=== PATIENT | female | born 1990 | race Caucasian/White ===

== ENCOUNTER 2017-03-21 08:08 | Emergency (ER) | payer OTHER ==
[~2017-03-21] VITALS: Ht 152.4 cm; Wt 56.7 kg
[~2017-03-21 08:08] MED LIST: ACET325 PO; ALBU90OI INH; ALPR.25 PO; ALPR.5 PO; AMOCLA875 PO; ANTOXYBENA RIGHTEAR; AZIT250 PO; Ambien5 MG PO; Amitriptyline100 MG PO; BENTYL20 MG PO; BENZ100A PO; Bactrim Ds Tab1 EACH PO; CEPH500 PO; CITA20 PO; FLUO10 PO; FLUO20 PO; Flagyl500 MG PO; GUAI600T33 PO; HYDACE5 PO; HYDACE5325 PO; HYDPAM50 PO; HYDR1TAB94 PO; IBUP200 PO; Keflex500 MG PO; MARINA IUD; METPRE4DP PO; MUPI2TO TOP; NAPR500 PO; NAPR550 PO; Norco 5-325 Ta1 EACH PO; OMEP20ER PO; ONDA4 PO; PRED20 PO; PRENZ; PRODEXEL PO; PROM25 PO; PSEU120ER PO; Pepcid40 MG PO; Percocet 5-3251 EACH PO; RXCLIN PO; RXHYD5325 PO; SULTRIDS PO; TRAM50 PO; Ultram50 MG PO; VICODIN 5-3001 EACH PO; VYBRID PO; Vibramycin100 MG PO; Xanax0.5 MG PO; YAZ; Zithromax250 MG PO; Zofran Odt4 MG SL; Zofran4 MG PO; Zoloft50 MG PO; [UNRECOGNIZED DRUG - OTHER]
[2017-03-21] MEDS ORDERED: IBUPROFEN200 MG PO (08:44)
[2017-03-21 08:56] LABS: Source, Urine Clean Catch
[2017-03-21 09:11] LABS: Blood, Urine 3+ (Neg); Glucose Qualitative, Urine Neg (Neg); Ketones, Urine Neg (Neg); Leukocyte Esterase, Urine 3+ (Neg); Nitrite, Urine Pos (Neg); Protein, Urine 3+ (Neg); Urobilinogen, Urine 1+ (Normal)
[2017-03-21 09:20] LABS: Bilirubin, Urine 1+ (Neg)
[2017-03-21 09:21] LABS: Appearance, Urine Cloudy (Clear); Color, Urine Amber (P-Yellow)
[2017-03-21 09:22] LABS: White Blood Cells, Urine TNTC /hpf (0-5)
[2017-03-21 09:23] LABS: Bacteria Many /hpf; Squamous Epithelial Cells Many /hpf (Few)
[2017-03-21 09:49] LABS: BASOPHILS ABSOLUTE AUTO 0.02 K/mm3 (0.00-0.23); BASOPHILS PERCENT AUTO 0 % (0-2); EOSINOPHILS PERCENT AUTO 0 % (0-6); Hematocrit 42.3 % (33.0-51.0); Hemoglobin 14.1 g/dL (11.5-16.0); IMMATURE GRAN ABSOLUTE AUTO 0.13 K/mm3 (0.00-0.10); IMMATURE GRAN PERCENT AUTO 1 % (0-1); LYMPHOCYTES ABSOLUTE AUTO 1.71 K/mm3 (0.84-5.20); LYMPHOCYTES PERCENT AUTO 7 % (21-46); MONOCYTES ABSOLUTE AUTO 1.19 K/mm3 (0.16-1.47); MONOCYTES PERCENT AUTO 5 % (4-13); Mean Corpuscular HGB 29.5 pg (26.0-34.0); Mean Corpuscular HGB Conc 33.3 g/dL (31.5-36.5); Mean Corpuscular Volume 89 fL (80-100); Mean Platelet Volume 9.9 fL (9.1-12.4); NEUTROPHILS ABSOLUTE AUTO 22.95 K/mm3 (1.96-9.15); NEUTROPHILS PERCENT AUTO 88 % (41-73); Platelet Count 224 K/mm3 (150-400); RDW Coefficient Variation 13.3 % (11.7-14.2); RDW Standard Deviation 43.7 fL (35.1-46.3); Red Blood Cell Count 4.78 M/mm3 (3.80-5.20)
[2017-03-21 10:03] LABS: Specimen Source VAG
[2017-03-21 10:15] LABS: Alanine Aminotransfer (ALT/SGP 17 U/L (12-78); Albumin, Blood 3.3 g/dL (3.4-5.0); Albumin/Globulin Ratio 0.9 (0.8-1.8); Alk Phos 66 U/L (50-136); Anion Gap 10 mmol/L (6-16); Aspartate Aminotrans (AST/SGOT 9 U/L (12-37); Bilirubin, Total 0.6 mg/dL (0.1-1.0); Blood Urea Nitrogen 14 mg/dL (8-24); Bun/Creatinine Ratio 21.1 (12.0-20.0); CO2, Blood 21 mmol/L (21-32); Calcium, Blood 8.5 mg/dL (8.5-10.1); Chloride, Blood 103 mmol/L (98-108); Creatinine, Blood 0.67 mg/dL (0.40-1.00); Globulin, Blood 3.7 g/dL (2.2-4.0); Glomerular Filtration Rate >60 (60-); Glucose, Blood 110 mg/dL (70-99); Potassium, Blood 3.9 mmol/L (3.5-5.5); Sodium, Blood 134 mmol/L (136-145)
[2017-03-21] MEDS ORDERED: MONDOXYNE NL100 MG PO (10:26)
[2017-03-21] MEDS ORDERED: Zofran Odt4 MG SL (10:26)
[2017-03-21] MEDS ORDERED: Flagyl500 MG PO (10:26)
[2017-03-21 10:40] LABS: Candida species (DNA Probe) Negative (NEGATIVE); G. vaginalis (DNA Probe) Positive (NEGATIVE); T. vaginalis (DNA Probe) Negative (NEGATIVE)
[2017-03-22 03:49] LABS: Source Vaginal/Cervical
[2018-01-04] MEDS ORDERED: KETO10 PO (13:59)
[2018-01-04] MEDS ORDERED: Bactrim Ds Tab1 EACH PO (13:59)
[2018-01-04] MEDS ORDERED: CEPH500 PO (13:59)
== END 2017-03-21 12:37 | disposition home or self-care (01) ==
LOC: ER 08:08
PROVIDERS: Physician Assistant
DX: N73.9 Female pelvic inflammatory disease, unspecified (principal); J45.909 Unspecified asthma, uncomplicated; F17.200 Nicotine dependence, unspecified, uncomplicated; Z88.1 Allergy status to other antibiotic agents; Z88.5 Allergy status to narcotic agent; Z90.49 Acquired absence of other specified parts of digestive tract
CPT/HCPCS: 36415; 74177; 80053; 81001; 81025; 85025; 87070; 87086; 87205; 87480; 87491; 87510; 87591; 87660; 96374; 96375; 99284; J0696; J1170; J2405; J3010; Q9967

== ENCOUNTER 2018-01-09 17:35 | Emergency (ER) | payer MEDICAID ==
[~2018-01-09] VITALS: Ht 152.4 cm; Wt 59.0 kg
[~2018-01-09 17:35] MED LIST changes: +IBUPROFEN200 MG PO; +KETO10 PO; +MONDOXYNE NL100 MG PO
[2018-01-09 19:12] LABS: BASOPHILS ABSOLUTE AUTO 0.03 K/mm3 (0.00-0.23); BASOPHILS PERCENT AUTO 0 % (0-2); EOSINOPHILS ABSOLUTE AUTO 0.23 K/mm3 (0.00-0.68); EOSINOPHILS PERCENT AUTO 2 % (0-6); Hematocrit 45.8 % (33.0-51.0); IMMATURE GRAN ABSOLUTE AUTO 0.03 K/mm3 (0.00-0.10); IMMATURE GRAN PERCENT AUTO 0 % (0-1); LYMPHOCYTES ABSOLUTE AUTO 3.99 K/mm3 (0.84-5.20); LYMPHOCYTES PERCENT AUTO 40 % (21-46); MONOCYTES ABSOLUTE AUTO 0.68 K/mm3 (0.16-1.47); MONOCYTES PERCENT AUTO 7 % (4-13); Mean Corpuscular HGB 28.9 pg (26.0-34.0); Mean Corpuscular HGB Conc 32.8 g/dL (31.5-36.5); Mean Corpuscular Volume 88 fL (80-100); Mean Platelet Volume 9.3 fL (9.1-12.4); NEUTROPHILS ABSOLUTE AUTO 5.03 K/mm3 (1.96-9.15); NEUTROPHILS PERCENT AUTO 50 % (41-73); Platelet Count 384 K/mm3 (150-400); RDW Coefficient Variation 12.7 % (11.7-14.2); RDW Standard Deviation 41.7 fL (35.1-46.3); Red Blood Cell Count 5.19 M/mm3 (3.80-5.20); White Blood Cell Count 9.99 K/mm3 (4.00-11.30)
[2018-01-09 19:23] LABS: Source, Urine Clean Catch
[2018-01-09 19:26] LABS: Appearance, Urine Clear (Clear); Bilirubin, Urine Neg (Neg); Blood, Urine Neg (Neg); Color, Urine Yellow (P-Yellow); Glucose Qualitative, Urine Neg (Neg); Ketones, Urine Neg (Neg); Leukocyte Esterase, Urine Neg (Neg); Nitrite, Urine Neg (Neg); Protein, Urine Neg (Neg); Urobilinogen, Urine NORM (Normal)
[2018-01-09 19:37] LABS: Alanine Aminotransfer (ALT/SGP 25 U/L (12-78); Albumin, Blood 3.7 g/dL (3.4-5.0); Albumin/Globulin Ratio 0.9 (0.8-1.8); Alk Phos 71 U/L (50-136); Anion Gap 10 mmol/L (6-16); Aspartate Aminotrans (AST/SGOT 11 U/L (12-37); Bilirubin, Total <0.1 mg/dL (0.1-1.0); Blood Urea Nitrogen 10 mg/dL (8-24); Bun/Creatinine Ratio 14.3 (12.0-20.0); CO2, Blood 24 mmol/L (21-32); Chloride, Blood 109 mmol/L (98-108); Globulin, Blood 4.1 g/dL (2.2-4.0); Glomerular Filtration Rate >60 (60-); Glucose, Blood 92 mg/dL (70-99); Potassium, Blood 3.5 mmol/L (3.5-5.5); Sodium, Blood 143 mmol/L (136-145); Total Protein, Blood 7.8 g/dL (6.4-8.2)
[2018-01-09] MEDS ORDERED: Zofran Odt4 MG PO (20:14)
== END 2018-01-09 20:17 | disposition home or self-care (01) ==
LOC: ER 17:35
PROVIDERS: Physician Assistant
DX: R11.2 Nausea with vomiting, unspecified (principal); R19.7 Diarrhea, unspecified; F17.210 Nicotine dependence, cigarettes, uncomplicated; Z88.1 Allergy status to other antibiotic agents; Z88.5 Allergy status to narcotic agent
CPT/HCPCS: 36415; 80053; 81003; 85025; 99283

== ENCOUNTER 2020-02-07 01:54 | Emergency (ER) | payer SELFPAY ==
[~2020-02-07] VITALS: Ht 152.4 cm; Wt 68.0 kg
[~2020-02-07 01:54] MED LIST changes: +Zofran Odt4 MG PO
== END 2020-02-07 02:22 | disposition home or self-care (01) ==
LOC: ER 01:54
DX: M25.552 Pain in left hip (principal); F32.9 Major depressive disorder, single episode, unspecified; F41.9 Anxiety disorder, unspecified; J45.909 Unspecified asthma, uncomplicated; F17.210 Nicotine dependence, cigarettes, uncomplicated; Z88.1 Allergy status to other antibiotic agents; Z88.5 Allergy status to narcotic agent; W18.30XA Fall on same level, unspecified, initial encounter
CPT/HCPCS: 96372; 99283-25; J1885

== ENCOUNTER 2020-08-01 04:10 | Emergency (ER) | payer SELFPAY ==
[~2020-08-01] VITALS: Ht 152.4 cm; Wt 63.5 kg
== END 2020-08-01 05:06 | disposition left against medical advice (07) ==
LOC: ER 04:10
DX: Z53.21 Procedure and treatment not carried out due to patient leaving prior to being seen by health care provider (principal)

== ENCOUNTER → 2020-12-14 | Outpatient (CLI) | payer SELFPAY | END | disposition home or self-care (01) | LOC: LAB SHORT 18:45 | DX: L02.411 Cutaneous abscess of right axilla (principal) | CPT/HCPCS: 87070; 87075; 87077; 87147; 87186; 87205 ==

== ENCOUNTER → 2021-04-20 | Outpatient (CLI) | payer OTHER ==
[2021-04-23 20:09] LABS: HPV 16 Negative (Negative); HPV 18 Negative (Negative); HPV OTHER HR TYPES Negative (Negative)
== END | disposition home or self-care (01) ==
LOC: LAB SHORT 12:00
PROVIDERS: Obstetrics & Gynecology
DX: Z01.419 Encounter for gynecological examination (general) (routine) without abnormal findings (principal)
CPT/HCPCS: 87624; G0123

== ENCOUNTER → 2021-07-18 | Outpatient (CLI) | payer OTHER ==
[2021-07-20 01:08] LABS: CHLAMYDIA TRACHOMATIS, NAA Negative (Negative)
== END | disposition home or self-care (01) ==
LOC: LAB 10:35 → LAB SHORT 10:35
PROVIDERS: Obstetrics & Gynecology
DX: Z11.3 Encounter for screening for infections with a predominantly sexual mode of transmission (principal)
CPT/HCPCS: 87491; 87591

== ENCOUNTER → 2022-10-22 | Outpatient (CLI) | payer OTHER | LOC: LAB 15:53 → LAB SHORT 15:53 | DX: O09.891 Supervision of other high risk pregnancies, first trimester (principal) | CPT/HCPCS: 87081; 87150 ==

== ENCOUNTER 2022-11-02 05:33 | Inpatient (IN) | payer OTHER ==
[~2022-11-02] VITALS: Ht 152.4 cm; Wt 64.5 kg
[2022-11-02] VITALS (25 sets, daily range): BP systolic 83–204; BP diastolic 47–94
[2022-11-02] MEDS ORDERED: BUPRENORPHINE HC2 MG SL (06:38)
[2022-11-02] MEDS ORDERED: BUSP5 PO (06:39)
[2022-11-02 06:57] LABS: BASOPHILS ABSOLUTE AUTO 0.01 K/mm3 (0.00-0.23); BASOPHILS PERCENT AUTO 0 % (0-2); EOSINOPHILS ABSOLUTE AUTO 0.02 K/mm3 (0.00-0.68); EOSINOPHILS PERCENT AUTO 0 % (0-6); Hematocrit 31.5 % (33.0-51.0); Hemoglobin 10.8 g/dL (11.5-16.0); IMMATURE GRAN ABSOLUTE AUTO 0.03 K/mm3 (0.00-0.10); IMMATURE GRAN PERCENT AUTO 0 % (0-1); LYMPHOCYTES ABSOLUTE AUTO 1.54 K/mm3 (0.84-5.20); LYMPHOCYTES PERCENT AUTO 20 % (21-46); MONOCYTES PERCENT AUTO 9 % (4-13); Mean Corpuscular HGB 30.1 pg (26.0-34.0); Mean Corpuscular HGB Conc 34.3 g/dL (31.5-36.5); Mean Corpuscular Volume 88 fL (80-100); Mean Platelet Volume 10.5 fL (9.1-12.4); NEUTROPHILS ABSOLUTE AUTO 5.43 K/mm3 (1.96-9.15); NEUTROPHILS PERCENT AUTO 70 % (41-73); Platelet Count 273 K/mm3 (150-400); RDW Coefficient Variation 13.1 % (11.7-14.2); RDW Standard Deviation 42.1 fL (35.1-46.3); Red Blood Cell Count 3.59 M/mm3 (3.80-5.20); White Blood Cell Count 7.73 K/mm3 (4.00-11.30)
--- NOTE | 2022-11-02 08:38 | NUR ---
11/02/22 0837 Antonia Najera PRIMARY CS FOR BREECH BABY BOY 11/17 WEIGHT 2985 GMS 6-9 LENGTH 19.5 HEAD 14IN CHEST 13.5 IN
[2022-11-03] VITALS (7 sets, daily range): BP systolic 97–144; BP diastolic 56–73
[2022-11-03 06:45] LABS: BASOPHILS ABSOLUTE AUTO 0.03 K/mm3 (0.00-0.23); BASOPHILS PERCENT AUTO 0 % (0-2); EOSINOPHILS ABSOLUTE AUTO 0.07 K/mm3 (0.00-0.68); EOSINOPHILS PERCENT AUTO 1 % (0-6); Hematocrit 32.6 % (33.0-51.0); Hemoglobin 10.9 g/dL (11.5-16.0); IMMATURE GRAN ABSOLUTE AUTO 0.05 K/mm3 (0.00-0.10); IMMATURE GRAN PERCENT AUTO 0 % (0-1); LYMPHOCYTES ABSOLUTE AUTO 3.64 K/mm3 (0.84-5.20); LYMPHOCYTES PERCENT AUTO 29 % (21-46); MONOCYTES ABSOLUTE AUTO 1.05 K/mm3 (0.16-1.47); MONOCYTES PERCENT AUTO 8 % (4-13); Mean Corpuscular HGB 29.4 pg (26.0-34.0); Mean Corpuscular HGB Conc 33.4 g/dL (31.5-36.5); Mean Corpuscular Volume 88 fL (80-100); Mean Platelet Volume 10.4 fL (9.1-12.4); NEUTROPHILS ABSOLUTE AUTO 7.92 K/mm3 (1.96-9.15); NEUTROPHILS PERCENT AUTO 62 % (41-73); Platelet Count 294 K/mm3 (150-400); RDW Coefficient Variation 13.1 % (11.7-14.2); RDW Standard Deviation 40.9 fL (35.1-46.3); Red Blood Cell Count 3.71 M/mm3 (3.80-5.20); White Blood Cell Count 12.76 K/mm3 (4.00-11.30)
--- NOTE | 2022-11-03 16:06 | NUR ---
[facility] NOTE Spoke with Deangelo Mauricio, hotline admitting representative. Information about pt and nb given. Case is considered closed at screening unless CPS calls back with any concerns.
[2022-11-04 03:38] VITALS: BP 106/64
[2022-11-04 07:55] VITALS: BP 108/75
[2022-11-04 20:13] VITALS: BP 95/52
[2022-11-05 00:49] VITALS: BP 87/52
[2022-11-05 00:50] VITALS: BP 82/52
[2022-11-05 04:40] VITALS: BP 97/54
[2022-11-05 07:30] VITALS: BP 105/59
[2022-11-05 12:05] VITALS: BP 108/71
[2022-11-05] MEDS ORDERED: ACET500 PO (14:17)
[2022-11-05] MEDS ORDERED: OXAYDO5 M1 PO (14:17)
[2022-11-05] MEDS ORDERED: IBUP800 PO (14:18)
--- NOTE | 2022-11-05 19:00 | NUR ---
PT DISCHARGED TO BOARDER STATUS. PT VERBALIZES UNDERSTANDING TO WHAT BOARDER STATUS IS. PT'S SO HAS PICKED UP HER PRESCRIPTIONS AND PT WAS GIVEN TIMES OF WHEN TO TAKE THE NEXT DOSES AND HOW MUCH TO TAKE.
== END 2022-11-05 19:00 | disposition home or self-care (01) | DRG 788 ==
LOC: BC 05:33
PROVIDERS: ADMIT Obstetrics & Gynecology
PROC: 10D00Z1 Extraction of Products of Conception, Low, Open Approach (ICD-10-PCS; principal; 2022-11-02 07:30)
DX: O32.1XX1 Maternal care for breech presentation, fetus 1 (principal); O99.344 Other mental disorders complicating childbirth; F41.8 Other specified anxiety disorders; O99.334 Smoking (tobacco) complicating childbirth; F17.290 Nicotine dependence, other tobacco product, uncomplicated; F11.11 Opioid abuse, in remission; O90.89 Other complications of the puerperium, not elsewhere classified; R33.9 Retention of urine, unspecified; Z3A.39 39 weeks gestation of pregnancy; Z37.0 Single live birth; O99.62 Diseases of the digestive system complicating childbirth; K59.00 Constipation, unspecified; Z88.1 Allergy status to other antibiotic agents; Z88.5 Allergy status to narcotic agent; Z79.891 Long term (current) use of opiate analgesic; Z79.899 Other long term (current) drug therapy; Z71.6 Tobacco abuse counseling
CPT/HCPCS: 36415; 85025; 86850; 86900; 86901; A9270; J0690; J1100; J1885; J2405; J2590; J2765; J3010; J7120